=== PATIENT | female | born 1955 | race Caucasian/White ===

== ENCOUNTER → 2017-09-14 | Outpatient (CLI) | payer BC ==
[~2017-09-14] MED LIST: CALC-51 PO; GABA-113 PO; GLUCTAB32 PO; MULT-506 PO; NAPR1TAB9 PO; SODI5SOL4 OPB
--- NOTE | 2017-09-14 11:50 | DIAGNOSTIC IMAGING REPORT ---
CHEST 2 VIEWS ROUTINE CLINICAL HISTORY: Preoperative evaluation. COMPARISON STUDY: No previous studies for comparison. FINDINGS: Lung volumes are normal. There is no pneumothorax or pleural effusion. Lungs are clear. Linear lingular opacity reflects atelectasis. There is no consolidation to suggest pneumonia. There is moderate enlargement of the cardiac silhouette. Pulmonary vascularity is normal. IMPRESSION: 1. No acute cardiopulmonary findings. 2. Moderate enlargement of the cardiac silhouette. Electronically signed by: Jose Trimble M.D. 09/14/2017 10:07 AM Dictated Date/Time: 09/14/2017 10:06 AM
[2017-09-14 12:04] LABS: PTT PATIENT 26.6 SECONDS (21.0-31.0)
[2017-09-14 12:52] LABS: BASO % 0.4 %; BASO ABS # 0.03 K/uL (0-0.2); EOS % 4.1 %; EOS ABS # 0.34 K/uL (0-0.5); HEMATOCRIT 39.1 % (37-47); HEMOGLOBIN 12.5 g/dL (12.0-16.0); IG# 0.02 K/uL (0.00-0.02); LYMPH % 27.3 %; LYMPH ABS # 2.24 K/uL (1.2-3.4); MEAN CORPUSCULAR HEMOGLOBIN 29.4 pg (25-34); MEAN PLATELET VOLUME 11.1 fL (7.4-10.4); MONO % 5.7 %; MONO ABS # 0.47 K/uL (0.11-0.59); NEUT % 62.3 %; PLATELET COUNT 262 K/uL (130-400); RED CELL DISTRIBUTION WIDTH CV 14.2 % (11.5-14.5); RED CELL DISTRIBUTION WIDTH SD 47.5 fL (36.4-46.3)
[2017-09-14 13:31] LABS: HEMOGLOBIN A1C 5.5 % (4.5-5.6)
[2017-09-14 13:48] LABS: ALBUMIN 3.8 gm/dl (3.4-5.0); BLOOD UREA NITROGEN 22 mg/dl (7-18); CALCIUM 8.6 mg/dl (8.5-10.1); CARBON DIOXIDE 26 mmol/L (21-32); CREATININE 0.59 mg/dl (0.60-1.20); GLUCOSE 98 mg/dl (70-99); POTASSIUM 4.1 mmol/L (3.5-5.1); SODIUM 139 mmol/L (136-145)
== END | disposition home or self-care (01) ==
LOC: C.CPL 07:21
PROVIDERS: ATTEND Orthopaedic Surgery Sports Medicine
DX: Z01.818 Encounter for other preprocedural examination (principal)

== ENCOUNTER 2020-01-11 05:53 | Observation (INO) ==
--- NOTE | 2020-01-03 14:22 | Anesthesiology Consultation ---
Date of Service January 03, 2020 Assessment & Plan (1) Encounter for pre-operative examination: Chart Review Chart Review: Pending: Refer to Additional Notes / Consult section (pending ECHO/PCP response and preop Covid testing ) -Discussed [address] Rutledge who recommend checking with cardio to see if ECHO was consistent with HOCM and if repeat ECHO needed prior to surgery. Did discuss with Dr. Brush who does recommend repeat ECHO- note was sent to PCP to see if PCP can order ECHO prior to surgery since patient lives in [place], [place]. If unable- we will try to schedule in [place]. Will awaiting PCP response- did send 2018 ECHO for PCP review Per nursing assessment 12/11/2019, patient resides in [facility]. Wears mask, uses good hand hygiene and socially distances. Travels to [facility] for medical appts. No known Covid positive contacts or Covid related symptoms. Pt follow up with surgeon re: preop Covid testing. Patient seen by PCP 12/25/19= seen for preop clearance. Possible systolic murmur appreciated. Preoperative testing was reviewed. "According to the RCR for preoperative risk, patient is considered a class I risk with a 3.9% chance of adverse cardiac event. No other testing recommended prior to surgery." Right TKA 10/14/17= Done under SAB at L3-4 with 1 attempt. History Surgery Operation Date: 01/11/20 07:30 Proposed Procedures p Right Ankle Posterior Tibial Tendon Reconstruction with Flexor Digitorum Longus Tendon Transfer, - Angel Cuadra DO s Medializing Calcaneal Osteotomy, - Angel Cuadra DO s Lateral Column Lengthening with Autograft, Percutaneous Tendoachilles Lengthening, - Angel Cuadra DO s Right Iliac Crest Autograft [place] - Angel Cuadra DO Height/Weight Height: 5 ft 5 in Weight: 103.419 kg Allergies Allergy/AdvReac Type Severity Reaction Status Date / Time adhesive Allergy Unknown RASH WITH Verified 12/11/19 08:42 BANDAIDS pollen extracts Allergy Unknown sneezing Verified 12/11/19 08:42 Medications Home Medications Medication Instructions Recorded Confirmed Last Taken acetaminophen [Tylenol Extra 1,000 mg PO Q6H PRN 12/11/19 12/11/19 Unknown Strength] calcium carbonate-vitamin D3 1 cap PO QPM 12/11/19 12/11/19 Unknown [Calcium 600 + D(3)] glucos sul 1HNp-tyr-lynzc-C-Mn 3 cap PO QPM 12/11/19 12/11/19 Unknown [Glucosamine Chondroitin] loratadine [Claritin] 10 mg PO QAM 12/11/19 12/11/19 Unknown meloxicam 7.5 mg PO QAM 12/11/19 12/11/19 Unknown mirabegron [Myrbetriq] 25 mg PO QAM 12/11/19 12/11/19 Unknown montelukast 10 mg PO HS 12/11/19 12/11/19 Unknown tmkwpxjduxdq-awuyclfi-xjdxpz 1 tab PO QPM 12/11/19 12/11/19 Unknown [Multivitamin 50 Plus] Past Medical History Medical History (Updated 01/03/20 @ 14:13 by Sushma Clifton PA-C) Allergic rhinitis Arthritis Cardiac murmur 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 GERD (gastroesophageal reflux disease) Urinary bladder incontinence Past Family History Family History Grandmother (Paternal) Family history of diabetes mellitus Father Family history of diabetes mellitus Son Family history of diabetes mellitus Son Family history of diabetes mellitus Past Surgical History Surgical History History of section History of colonoscopy History of foot surgery LEFT History of hysterectomy OVARIES REMAIN History of total knee replacement RIGHT/LEFT Hx of breast biopsy R/L "CALCIUM SPOTS" Nausea and vomiting after administration of anesthetic agent Social History Smoking Status: Never smoker Do You Dip or Chew Tobacco: No Hx Alcohol Use: Yes Alcohol type: hard liquor alcohol intake frequency: a few times a week Hx Substance Use: No Testing Laboratory Results 12/12/19= WBC: 8.5 H/H: 13.0/39.2 PLATELETS: 301 UA: Trace leukocyte esterase Electrocardiogram Date: 12/12/19 Findings: + NSR @ (70) Incomplete right bundle branch block. Chest X-Ray Date: 12/12/19 Findings: + NAD Borderline sized heart. Echocardiogram Date: 10/05/17 EF: 60-65% LV Function: normal RWMA: + none Other Findings: + LVH (Moderate/concentric) and + diastolic dysfunction (Grade 1) Valvular Disease: + no significant valvular disease Severe asymmetric hypertrophy of the anterior septum. Severe left atrial dilation.
--- NOTE | 2020-01-10 16:58 | History & Physical Report ---
Date of Service January 10, 2020 Assessment & Plan (1) Nontraumatic tear of right tibialis posterior tendon: Schedule a Right Posterior tibial tendon reconstruction w/ FDL tendon transfer, Medializing calcaneal osteotomy, Lateral column lengthening w/ autograft, percutaneous tendo-achilles lengthening, right iliac crest autograft harvest for 01.11.2020. All potential risks, benefits, complications, alternatives, and rehab have been discussed with the patient and she wishes to proceed. Plan for ASA 81 mg BID x 4 wks post op for DVT prophylaxis. (2) Posterior tibial tendon dysfunction, right: (3) Pes planus of right foot: (4) Contracture of right Achilles tendon: History of Present Illness Chief Complaint: right ankle pain Primary Care Provider: Divina Scott This is a patient with an onset May 2019 right medial ankle and foot pain with burning and mild swelling proximal and distal to the medial ankle. Pain with walking. Pain worsens with sleep and rest. + Awakens from sleep. Attempted shoe wear modification and Diclofenac gel 1.0% 4X per day. No help. She was treated with PT and later had an MRI because she failed to progress. She is now being set up for surgical management. Allergies Allergy/AdvReac Type Severity Reaction Status Date / Time adhesive Allergy Unknown RASH WITH Verified 12/11/19 08:42 BANDAIDS pollen extracts Allergy Unknown sneezing Verified 12/11/19 08:42 Home Medications Medication Instructions Recorded Confirmed Type acetaminophen [Tylenol Extra 1,000 mg PO Q6H PRN 12/11/19 12/11/19 History Strength] calcium carbonate-vitamin D3 1 cap PO QPM 12/11/19 12/11/19 History [Calcium 600 + D(3)] glucos sul 1ZEw-iyl-cbzll-C-Mn 3 cap PO QPM 12/11/19 12/11/19 History [Glucosamine Chondroitin] loratadine [Claritin] 10 mg PO QAM 12/11/19 12/11/19 History meloxicam 7.5 mg PO QAM 12/11/19 12/11/19 History mirabegron [Myrbetriq] 25 mg PO QAM 12/11/19 12/11/19 History montelukast 10 mg PO HS 12/11/19 12/11/19 History ghoandcqytpx-bexaknvf-faadai 1 tab PO QPM 12/11/19 12/11/19 History [Multivitamin 50 Plus] Past Med/Surg History Medical History (Updated 01/10/20 @ 16:55 by Sreedhar Hernandez PA-C) Allergic rhinitis Arthritis Cardiac 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 GERD (gastroesophageal reflux disease) Urinary bladder incontinence Surgical History History of section History of colonoscopy History of foot surgery LEFT History of hysterectomy OVARIES REMAIN History of total knee replacement RIGHT/LEFT Hx of breast biopsy R/L "CALCIUM SPOTS" Nausea and vomiting after administration of anesthetic agent Family History Grandmother (Paternal) Family history of diabetes mellitus Father Family history of diabetes mellitus Son Family history of diabetes mellitus Son Family history of diabetes mellitus Social History Smoking Status: Never smoker Second Hand Exposure: Yes (WHOLE FAMILY SMOKED); Do You Dip or Chew Tobacco: No; Hx Alcohol Use: Yes Alcohol type: hard liquor Hx Substance Use: No Preferred Language: Romanian Communication Ability: Effective Maintenance And Utilities Supervisor Required: No Beliefs That Will Affect Care: None Current Living Situation: Spouse Other Information That Helps Us Care for You: No Feels Safe at Home: Yes Safety Concerns: Feels Safe At This Time Assistive Devices: Brace/Splint/Immobilizer and Glasses Assistive Devices Comment: BRACE RIGHT FOOT Physical Exam Constitutional: well developed and well nourished; no acute distress ENMT: external ear and nose normal, oropharynx normal Neck: trachea midline, no thyromegaly Respiratory: normal respiratory effort, lungs clear to auscultation Cardiovascular: Rate/Rhythm: regular rate and regular rhythm Gastrointestinal (Abdomen): normal bowel sounds, soft, nontender, no hepatosplenomegaly Musculoskeletal: Ankle: + deformity (right pes planovalgus), + limited ROM of ankle (right dorsiflexion) and + joint line tenderness (ankle) (right PTT and sinus tarsi); no skin erythema and no ecchymosis Skin: no rashes, warm and dry Neurologic: normal touch/pain/proprioception Psychiatric: A+Ox3, euthymic affect Speech: normal rate/rhythm/volume of speech Lymphatic: no cervical or axillary lymphadenopathy
--- OUTSIDE RECORDS SUMMARY | 2020-01-11 05:59 | External Medical Summary | Continuity of Care Document ---
:1955 Author Name Subha Barrera, Provider Address Unavailable Unavailable , Care Team Providers Name Role Phone Leonila Barrera Atilio Unavailable [email or web address] Unavailable Unavailable Unavailable Unavailable Unavailable Assessments Assessed Problems:Encounter for preventive health examination Problems Active medical history not documented Allergies and Adverse Reactions No Known Drug Allergies (Allergy) Pollen (Allergy) Medications Multiple Vitamin TABS; TAKE 1 TABLET DAILY. Refills: 0 Calcium 600 TABS; TAKE 1 TABLET DAILY. Refills: 0 Aleve 220 MG Oral Tablet; TAKE 1 TABLET TWICE DAILY NEEDE D. Refills: 0 Procedures Procedures not documented Immunizations Immunizations not documented Social History - Smoking Status Never smoked tobacco Plan of Treatment Planned Observations Planned Goals not documented Results No Known Results Results not documented Encounters Appointment; Echo/Stress, Echo/Stress 05-Oct-2017 9:30 Encounter Diagnosis: Problem not documented
[2020-01-11] MEDS ORDERED: ceFAZolin 2000MG 2,000 MG/15 ML SYR IV SCH (06:00)
[2020-01-11] MEDS ORDERED: LACTATED RINGER'S 1,000 ML IV SCH (06:00)
[2020-01-11] MEDS ORDERED: BUPIVACAINE 0.5 % 5 MG/1 ML MPF 30ML VIAL ONE (06:29)
[2020-01-11] MEDS ORDERED: EPINEPHrine INJ 1 MG/ML AMP ONE ×2 (06:29→08:38)
[2020-01-11] MEDS ORDERED: MIDAZOLAM HCL 1 MG/ML 2ML VIAL ONE (07:13)
[2020-01-11] MEDS ORDERED: fentaNYL citrate 100 MCG/2 ML VIAL ONE (07:13)
[2020-01-11] MEDS ORDERED: BUPIVACAINE/EPINEPHRINE 0.5% MPF 1:200,000 30 ML VIAL ONE (07:15)
[2020-01-11] MEDS ORDERED: BACITRACIN INJ 50,000 UNIT VIAL ONE (07:15)
[2020-01-11] MEDS ORDERED: GELATIN SPONGE SZ 100 ONE (07:15)
[2020-01-11] MEDS ORDERED: THROMBIN FOR SOLN 20000 UNIT KIT ONE (07:15)
--- NOTE | 2020-01-11 07:30 | History & Physical Bridge Note ---
Date of Service January 11, 2020 History & Physical Bridge Note I have examined the patient, reviewed the History & Physical and in the interval since the performance of the History & Physical I have noted the following changes of clinical significance: no changes noted
[2020-01-11] MEDS ORDERED: ROPIVACAINE 0.5% 5 MG/ML 30 ML VIAL ONE (07:35)
[2020-01-11] MEDS ORDERED: BUPIVACAINE 0.25% 30 ML VIAL ONE (08:38)
[2020-01-11] MEDS ORDERED: MoRPHine SULFATE PF 1 MG/ML 10 ML AMP/VIAL ONE (08:52)
[2020-01-11] MEDS ORDERED: DEXAMETHASONE SOD INJ 4 MG/ML VIAL ONE (09:13)
[2020-01-11] MEDS ORDERED: LIDOCAINE HCL 2% 2 ML VIAL/AMP(20MG/ML) INFIL ONE (09:13)
[2020-01-11] MEDS ORDERED: ONDANSETRON INJ 2 MG/ML 2 ML VIAL ONE (09:13)
[2020-01-11] MEDS ORDERED: PROPOFOL IV EMULSION 10 MG/ML 20 ML VIAL IV ONE (09:13)
[2020-01-11] MEDS ORDERED: KETAMINE 50 MG/5 ML SYRINGE ONE (09:14)
[2020-01-11] MEDS ORDERED: HYDROmorphone INJ 2 MG/ML SYR/VIAL ONE (09:15)
[2020-01-11] MEDS ORDERED: ATROPINE SULFATE 0.1 MG/ML 10ML SYR IV PRN (10:40)
[2020-01-11] MEDS ORDERED: FLUMAZENIL 0.1 MG/1 ML 10 ML VIAL IV PRN (10:40)
[2020-01-11] MEDS ORDERED: ONDANSETRON INJ 2 MG/ML 2 ML VIAL IV PRN ×2 (10:40→12:33)
[2020-01-11] MEDS ORDERED: LABETALOL HCL IV 5 MG/ML 20ML IV PRN (10:40)
[2020-01-11] MEDS ORDERED: HYDROmorphone INJ 0.5 MG/0.5 ML SYR IV PRN (10:40)
[2020-01-11] MEDS ORDERED: PROMETHAZINE HCL 12.5 MG in SODIUM CHLORIDE 0.9% 50 ML IV PRN (10:40)
[2020-01-11] MEDS ORDERED: NALOXONE HCL 0.4 MG/1 ML VIAL/CARP IV PRN ×2 (10:40→12:33)
[2020-01-11] MEDS ORDERED: fentaNYL citrate 100 MCG/2 ML VIAL IV PRN (10:40)
[2020-01-11] MEDS ORDERED: ePHEDrine sulfate 50 MG/ML AMP IV PRN (10:40)
--- NOTE | 2020-01-11 10:48 | Fluoroscopy Report ---
FL heel RT 2V CLINICAL HISTORY: RIGHT ANKLE RECONSTRUCTION COMPARISON STUDY: None. FLUOROSCOPY TIME: 13 seconds. FLUOROSCOPIC IMAGES: 2 FINDINGS: Fluoroscopy was provided during right calcaneal reconstruction with osteotomy and screw fix ation. Hardware is intact. Skin daljit are noted. There are no unexpected radiopaque foreign bodies. IMPRESSION: Fluoroscopy provided during right calcaneal reconstruction with osteotomy and screw fixa tion. ACT 112: Negative or not required by law. Electronically signed by: Jose Trimble M.D. 01/11/2020 10:46 AM
--- NOTE | 2020-01-11 11:02 | Post Operative Brief Note ---
Immediate Post Op Note v1 Date of Surgery January 11, 2020 Pre & Post Diagnosis Operation Date: 01/11/20 07:30 Pre-Op Diagnosis: (1) Nontraumatic tear of right tibialis posterior tendon: (2) Posterior tibial tendon dysfunction, right: (3) Pes planus of right foot: (4) Contracture of right Achilles tendon: Post-Op Diagnosis: (1) Nontraumatic tear of right tibialis posterior tendon: (2) Posterior tibial tendon dysfunction, right: (3) Pes planus of right foot: (4) Contracture of right Achilles tendon: I identified the patient and participated in the time-out.: Yes Procedure Operation Date: 01/11/20 07:30 Actual Procedures p Right Ankle Posterior Tibial Tendon Reconstruction with Flexor Digitorum Longus Tendon Transfer,(Right) - Angel Cuadra DO s Medializing Calcaneal Osteotomy with screw fixation, - DO mark Ramos Lateral Column Lengthening with screw fixation and autograft, Percutaneous Tendoachilles Lengthening, - Angel Cuadra DO s Right Iliac Crest Autograft [place] - Angel Cuadra DO Surgeon Angel Cuadra DO [employer] Lead Sreedhar Hernandez PA-C Estimated Blood Loss 10 Findings Consistent with Post-Op Diagnosis Specimens None Drains Hemovac Drain Anesthesia Type General Regional Complications none Disposition Accompanied Patient To Recovery: No Disposition: Recovery Room
--- NOTE | 2020-01-11 11:29 | Anesthesiology Progress Note ---
Date of Service January 11, 2020 Anesthesia Post Procedure Vital Signs Vital Signs: Temp Pulse Pulse Resp BP Pulse Ox 01/11/20 11:20 72 10 L 133/81 95 01/11/20 11:10 68 10 L 124/82 99 01/11/20 10:59 36.9 C 74 16 143/93 H 98 01/11/20 06:56 65 20 146/80 H 01/11/20 06:31 37 C 74 20 155/87 H Transfer of Care Handoff Completed per policy Notes Mental Status: alert / awake / arousable Patient Amnestic to Procedure: Yes Nausea / Vomiting: adequately controlled Pain: adequately controlled Airway Patency, RR, SpO2: stable & adequate BP & HR: stable & adequate Hydration State: stable & adequate Anesthetic Complications: no major complications apparent
--- NOTE | 2020-01-11 12:04 | Operative Report (OR) ---
DATE OF OPERATION: 01/11/2020 PREOPERATIVE DIAGNOSES: 1. Right posterior tibial tendon tear. 2. Posterior tibial tendon dysfunction grade 2. 3. Painful pes planovalgus deformity. 4. Achilles tendon contracture. POSTOPERATIVE DIAGNOSES: 1. Right posterior tibial tendon tear. 2. Posterior tibial tendon dysfunction grade 2. 3. Painful pes planovalgus deformity. 4. Achilles tendon contracture. PROCEDURES: 1. Right posterior tibial tendon reconstruction with flexor digitorum longus tendon transfer. 2. Medialized and calcaneal osteotomy with screw fixation. 3. Lateral column lengthening of the calcaneus with screw fixation and autograft. 4. Percutaneous tendo-Achilles lengthening. 5. Right iliac crest autograft harvest. SURGEON: Angel Cuadra DO. SCREWHEAD POLISHER: Sreedhar Hernandez PA-C who was present for patient positioning, sterile prep and drape, management of retractors and instruments. He was present through the critical portions of the case including wound closure, application of sterile dressing and transport of the patient to recovery. ANESTHESIA: General, regional. SPECIMENS: None. DRAINS: Hemovac x1. COMPLICATIONS: None. BLOOD LOSS: 10 mL. PERTINENT HISTORY: This is a 64-year-old woman who has had a severe painful deformity of her right foot. She has attempted conservative management with bracing, anti-inflammatories, rest and observation; however, she presented to the office, had radiographs and then eventually an MRI, which demonstrated complete rupture of her posterior tibial tendon with grade 2 changes of the hindfoot related to posterior tibial tendon dysfunction and Achilles tendon contracture, painful acquired pes planovalgus and she was then scheduled for surgery as indicated. All potential risks, benefits, complications, alternatives, rehab potential for incomplete relief of symptoms, need for further surgery, DVT, PE, , persistent pain, swelling, scarring, weakness, neurovascular injury, wound complications, hardware failure, nonunion, malunion, bone fracture were discussed with the patient. The patient decided to proceed with the procedure as indicated. DESCRIPTION OF PROCEDURE: The patient was taken to the operative suite. The consent was reviewed and surgical site was identified. The patient had undergone a General, regional anesthetic and then transferred to the Operating Room table. Tourniquet was placed high in the right thigh over cast padding. Right iliac crest and right lower extremity were then sterilely prepped and draped in usual fashion. The right lower extremity was then elevated and exsanguinated with Esmarch bandage, tourniquet inflated to 350 mmHg. Next, right foot was held in dorsiflexion. 11 blade scalpel was used to perform a three part percutaneous tendo Achilles lengthening and then the small stab incisions were then closed with a skin stapler. Next, a 15 blade scalpel was used to make an incision in oblique fashion on the lateral aspect of the right calcaneus. The incision was deepened to subcutaneous tissue. Meticulous hemostasis with electrocautery. Full thickness flaps were developed. Next, periosteum was elevated with small periosteal elevator. Hohmann retractors were placed and a sagittal saw was used to perform the osteotomy in the posterior aspect of the calcaneus. Tuberosity was then shifted medially and then stabilized with a guide pin from the 7.3 mm cannulated screw set under fluoroscopic control. Next, a short thread 7.3 mm cannulated screw of appropriate length was then placed over the guide pin and then used to compress the osteotomy under fluoroscopic control. Next, the guide pin was removed. The wound was irrigated with sterile Normal Saline and the dermis was closed using buried 3-0 Vicryl sutures and the skin was closed using 4-0 Nylon. Next, a 15 blade scalpel incision was made over the anterior process of the calcaneus and lateral calcaneus, the incision deepened through subcutaneous tissue, meticulous hemostasis with electrocautery. The extensor digitorum brevis was identified, incised and then elevated both superiorly and inferiorly. Peroneal tendon sheath was elevated and Hohmann retractors were placed in the sinus tarsi and then the inferior aspect of the calcaneus. A sagittal saw was used to make an osteotomy approximately 1.5 cm proximal to the calcaneal cuboid joint. Smooth osteotomes were placed into the osteotomies to open the osteotomy site and then a cervical lamina women's activities adviser was placed in the opening. The opening of appropriate width was then measured and the cervical lamina women's activities adviser was then removed from the osteotomy and a moist lap was placed over the foot. Next, after injection of the right iliac crest with approximately 15 cc of 0.5% Marcaine with Epinephrine a 15 blade scalpel incision was made over the iliac crest approximately 1 cm proximal to the ASIS. This was deepened to subcutaneous tissue with electrocautery down to the level of the fascia. Fascia was incised in line with the skin incision and then the iliac crest was clearly visualized, soft tissue and fascia was elevated medially and laterally. Small Keen retractors were placed in the inner and outer table of the iliac crest. It was irrigated with sterile Normal Saline. Appropriate length of bone wedge was measured and marked with electrocautery and then a sagittal saw was used to resect the appropriate width trapezoidal tricortical graft from the pelvis. Next, after irrigation and suction the graft was then placed on the back table and a small amount of cancellous graft was excised from the iliac crest. The wound was then finally irrigated with Sterile Normal Saline. The defect in the iliac crest was then packed with Gelfoam and Thrombin. This was then closed with the fascia overlying the iliac crest with #1 Vicryl sutures. Next, this was injected with 1 cc of Duramorph and 5 cc of 0.5% Marcaine with Epinephrine. The dermis was closed using buried interrupted 2-0 Vicryl sutures and the skin was closed using skin daljit. Approximately 5 more cc of 0.5% Marcaine with Epinephrine was injected. No oozing or bleeding was encountered and a sterile compressive dry dressing was applied overwrapped with an OpSite. Next, the graft was then placed in the lateral osteotomy of the foot to lengthen the lateral column using a cervical lamina women's activities adviser to span the osteotomy. After the graft was tamped in place with a bone tamp and mallet the cervical lamina women's activities adviser was removed. Next, the adjacent bone graft obtained from the iliac crest was then packed around the tricortical graft and then the graft was then stabilized with a single fully threaded 4.0 mm small fragment screw placed under lag technique compressing the graft in place. Next, the 2-0 Vicryl suture was used to close the extensor digitorum brevis and the dermis was closed using buried interrupted 3-0 Vicryl. Skin was closed using 4-0 Nylon sutures. Next, a 15 blade scalpel was used to make a long curvilinear incision along the medial aspect of the hind foot overlying the posterior tibial tendon. The incision was deepened to subcutaneous tissue. Meticulous hemostasis achieved with electrocautery. The incision was extended to the first metatarsal head. Next, after incision of the laciniate ligament the flexor retinaculum was encountered. This was incised in line with skin incision overlying the posterior tibial tendon. The posterior tibial tendon was clearly visualized. Tenotomy scissors were then used to complete the release of the flexor retinaculum and the posterior tibial tendon was then elevated sharply with combination of electrocautery and 15 blade scalpel from its insertion on the navicular. The damaged portion of the tendon distally was then resected and then a whip stitch was placed with 0 Ethibond suture in the distal aspect of the posterior tibial tendon. Next, dissection was continued in the mid foot in the interval between the first metatarsal and the abductor hallucis. A Weitlaner retractor was placed in the wound and then after careful dissection the master knot of Seth was released and the flexor digitorum longus and flexor hallucis longus were clearly visualized distally. Tenodesis was performed with interrupted 0 Ethibond suture with toes held in neutral alignment in line with the metatarsals. Next, a whip stitch was placed in the distal aspect of the FDL tendon and then the FDL was then released distally to allow it to be retracted proximally posterior to the medial malleolus after a small cut was made in the FDL sheath posterior to the medial malleolus. After the tendon was withdrawn posteriorly, the soft tissues were elevated from the medial navicular and a 4.5 mm drill hole was made in the medial navicular. A Fitzgerald suture passer was used to transfer the tendon from the plantar to the dorsal aspect of the navicular. It was then sutured back down to itself using a sharp tendon passer and a Pulvertaft weave technique with #2 fiber wire suture. Several passes were made and then this was then incorporated into the posterior tibial tendon. Next, free needle was used to tie the ends of the posterior tibial tendon and FDL tendon into the adjacent tendons. Sutures were then tied and cut. The wound was irrigated with Sterile Normal Saline. Deep drain was placed, a #10 Chinese single Hemovac drain medially and then the flexor sheath was closed using interrupted 2-0 Vicryl sutures. The interval between the first metatarsal and the abductors were closed using interrupted 2-0 Vicryl sutures. The dermis was closed using buried interrupted 3-0 Vicryl suture and skin closed with 4-0 Nylon. A sterile compressive Rc Grover plaster splint was applied and wrapped with an [place] wrap with the foot held in slight equinus and inversion. The tourniquet was released, patient awakened and taken to recovery in stable condition. I attest to the content of the Intraoperative Record and any orders documented therein. Any exception s are noted below.
[2020-01-11] MEDS ORDERED: MAGNESIUM HYDROXIDE SUSP 30 ML UDC PO PRN (12:33)
[2020-01-11] MEDS ORDERED: METOCLOPRAMIDE HCL INJ 5 MG/ML 2 ML VIAL IV PRN (12:33)
[2020-01-11] MEDS ORDERED: NO NSAIDS SCH (12:33)
[2020-01-11] MEDS ORDERED: ALUMINUM/MAGNESIUM SUSP 30 ML UDC PO PRN (12:33)
[2020-01-11] MEDS ORDERED: bisacodyL 10 MG SUPP PR PRN (12:33)
[2020-01-11] MEDS ORDERED: diphenhydrAMINE Capsule 25 MG CAP PO PRN (12:33)
[2020-01-11] MEDS: SODIUM CHLORIDE 0.9% 1000ML 1,000 ML IV SCH ×2 (13:07→23:19)
[2020-01-11] MEDS: ACETAMINOPHEN 500 MG TAB PO SCH ×2 (14:21→20:32)
[2020-01-11] MEDS: HYDROmorphone INJ 0.5 MG/0.5 ML SYR IV PRN ×2 (14:53→20:27)
[2020-01-11] MEDS: ceFAZolin 2000MG 2,000 MG/15 ML SYR IV SCH ×2 (15:37→23:26)
[2020-01-11] MEDS: oxyCODONE HCL IR 5 MG TAB (IMMEDIATE RELEASE) PO PRN (18:53)
[2020-01-11] MEDS: ASPIRIN 81 MG ECTAB PO SCH (20:32)
[2020-01-11] MEDS: DOCUSATE SODIUM 100 MG CAP PO SCH (20:33)
[2020-01-11] MEDS ORDERED: NON-FORMULARY MEDICATION (Glucos Sul 2kcl-Msm-Chond-C-Mn [Glucosamine Chondroitin] 550-30- PO SCH (21:00)
[2020-01-11] MEDS ORDERED: CALCIUM 600MG + VIT D 400 IU TAB PO SCH (21:00)
[2020-01-11] MEDS ORDERED: CEROVITE ADV FORMULA TAB PO SCH (21:00)
[2020-01-11] MEDS ORDERED: SENNA 8.6 MG TAB PO SCH (21:00)
[2020-01-11] MEDS ORDERED: MONTELUKAST SODIUM 10 MG TABLET PO SCH (21:00)
[2020-01-12] MEDS: oxyCODONE HCL IR 5 MG TAB (IMMEDIATE RELEASE) PO PRN ×3 (02:06→12:41)
[2020-01-12] MEDS: ACETAMINOPHEN 500 MG TAB PO SCH (05:44)
[2020-01-12 07:49] LABS: Hematocrit (blood only) 36.6 % (37-47); Hemoglobin 11.8 g/dL (12.0-16.0); Mean Corpuscular Hemoglobin 29.8 pg (25-34); Mean Corpuscular Hgb Conc 32.2 g/dL (32-36); Mean Corpuscular Volume 92.4 fL (80-100); Mean Platelet Volume 9.9 fL (7.4-10.4); Platelet Count 256 K/uL (130-400); RDW Coefficient of Variation 13.6 % (11.5-14.5); RDW Standard Deviation 45.9 fL (36.4-46.3); Red Blood Count 3.96 M/uL (4.2-5.4); White Blood Count 11.83 K/uL (4.8-10.8)
[2020-01-12 08:17] LABS: BUN Creatinine Ratio 18.4 (10-20); Calcium 9.8 mg/dl (8.5-10.1); Creatinine Clr Calc Pharmacy 81.8 ml/min; Est GFR (African American) 87.6; Est GFR (Non-African American) 75.6; Potassium 3.8 mmol/L (3.5-5.1)
[2020-01-12] MEDS: LORATADINE 10 MG TAB PO SCH ×2 (08:44→08:47)
[2020-01-12] MEDS: ASPIRIN 81 MG ECTAB PO SCH (08:44)
[2020-01-12] MEDS: DOCUSATE SODIUM 100 MG CAP PO SCH (08:44)
[2020-01-12] MEDS ORDERED: MIRABEGRON ER 25 MG TAB PO SCH (09:00)
[2020-01-12] MEDS ORDERED: MULTIVITAMIN TAB PO SCH (09:00)
--- NOTE | 2020-01-12 09:17 | Orthopedic Progress Note ---
Date of Service January 12, 2020 Assessment & Plan (1) Contracture of right Achilles tendon: 1. Right posterior tibial tendon reconstruction with flexor digitorum longus tendon transfer. 2. Medialized and calcaneal osteotomy with screw fixation. 3. Lateral column lengthening of the calcaneus with screw fixation and autograft. 4. Percutaneous tendo-Achilles lengthening. 5. Right iliac crest autograft harvest. DVT prophylaxis- ASA, TEDS Plan for discharge today if cleared by PT Admission and Anticipated Discharge Date Admission Date: January 11, 2020 Subjective she notes pain is mostly controlled this am. Getting up to use bedside commode. Denies CP/sob. Physical Exam Physical Exam: Toes mobile, NVI. Dressing in place. hemovac drain. Results & Data ([facility]) Vital Signs (Past 12 Hours) Vital Signs Temp Pulse Resp BP Pulse Ox 01/12/20 08:10 37.0 C 77 18 132/79 95 01/12/20 03:15 37.0 C 78 18 143/84 H 91 01/11/20 23:08 36.8 C 79 16 138/80 94
--- NOTE | 2020-01-18 08:54 | Discharge Summary ---
Date of Service January 18, 2020 Admission HPI Per Admitting Provider This is a patient with an onset May 2019 right medial ankle and foot pain with burning and mild swelling proximal and distal to the medial ankle. Pain with walking. Pain worsens with sleep and rest. + Awakens from sleep. Attempted shoe wear modification and Diclofenac gel 1.0% 4X per day. No help. She was treated with PT and later had an MRI because she failed to progress. She is now being set up for surgical management. Principal Diagnosis right posterior tibial tendon tear and dysfunction Discharge Exam Constitutional well developed and well nourished; no acute distress ENMT external ear and nose normal, oropharynx normal Neck trachea midline, no thyromegaly Respiratory normal respiratory effort, lungs clear to auscultation Cardiovascular Rate/Rhythm: regular rate and regular rhythm Gastrointestinal (Abdomen) normal bowel sounds, soft, nontender, no hepatosplenomegaly Musculoskeletal Ankle: + surgical incision (right ankle splint C/D/I ); no skin erythema and no ecchymosis Skin no rashes, warm and dry Neurologic normal touch/pain/proprioception Psychiatric A+Ox3, euthymic affect Speech: normal rate/rhythm/volume of speech Lymphatic no cervical or axillary lymphadenopathy Discharge Data Allergies Allergy/AdvReac Type Severity Reaction Status Date / Time adhesive Allergy Unknown RASH WITH Verified 01/11/20 06:23 BANDAIDS pollen extracts Allergy Unknown sneezing Verified 01/11/20 06:23 Consultations 01/11/20 12:33 Consult Case Management - Discharge Planning Routine Procedures Performed Operation Date: 01/11/20 07:30 Actual Procedures p Right Ankle Posterior Tibial Tendon Reconstruction with Flexor Digitorum Longus Tendon Transfer,(Right) - Angel Cuadra DO s Medializing Calcaneal Osteotomy, - DO mark Ramos Lateral Column Lengthening with Autograft, Percutaneous Tendoachilles Lengthening, - DO mark Ramos Right Iliac Crest Autograft [place] - Angel Cuadra DO Ordered Studies 01/11/20 05:00 US - OR guided needle placemen Routine 01/11/20 07:30 FL fluoroscopy <1hr Routine FL heel RT 2V Routine Hospital Course (1) Contracture of right Achilles tendon: The patient was admitted on the above date and underwent the noted procedure. She was doing well on POD #1 with pain control and maintaining NWB status on the RLE. She participated in PT. She was discharged home later that day. 1. Right posterior tibial tendon reconstruction with flexor digitorum longus tendon transfer. 2. Medialized and calcaneal osteotomy with screw fixation. 3. Lateral column lengthening of the calcaneus with screw fixation and autograft. 4. Percutaneous tendo-Achilles lengthening. 5. Right iliac crest autograft harvest. DVT prophylaxis- ASA, TEDS Plan for discharge today if cleared by PT Total Time Total Time Spent Total Time Spent (In Minutes): 30 Total Time Includes: Examination of the Patient, Discharge Planning and Medication Reconciliation Discharge Plan Discharge Items Patient Disposition: Home - Home Health Services Reason For Visit: Right Leg Snyovitis Tenosynovitis, Abnormal Findin Discharge Diagnosis: right posterior tibial tendon rupture Activity: Per Instructions section Non-emergency contact: Surgeon Call non-emergency contact if: your pain is not controlled, your pain is worsening and your temperature is above 101 Follow-up/Referrals: Brigido Plaza DO [Primary Care Provider] - Diet: Regular Addtl Attending Provider Instructions: ACTIVITY RECOMMENDATIONS: Limitations: No weight bearing to affected limb at all times. SPECIAL CARE INSTRUCTIONS: * Take Aspirin 81 mg every 12 hours for 4 weeks. Start first dose tonight. * Some drainage onto the dressing is normal and is no cause for alarm. * Some swelling is natural especially after walking. * When resting, keep your foot elevated above the level of your heart. * Call [facility] if you notice: -Increased drainage -Fever over 101 degrees F -Severe constant pain BANDAGE: * Leave bandage/cast in place unless otherwise directed. * Keep bandage/cast dry at all times. FOLLOW UP VISIT WITH DR. CUADRA If appointment is not already scheduled: Please call [facility] after you get home today to schedule a follow-up appointment for [address] Cuadra at . [facility] Provider Instructions: Will residential health is set up. Nursing and OT will see you the first week. PT will be there the week of 01/19 Pending Studies at Discharge: No Stand-Alone Forms: [employer], Opioid Pain Management, Smoking Cessation Medications and DC Order Prescriptions: New aspirin 81 mg tablet,delayed release (DR/EC) 81 mg PO BID Qty: 60 RF: 0 oxycodone-acetaminophen [Percocet] 5-325 mg tablet 1 tab PO Q4H PRN (Reason: pain) Qty: 20 RF: 0 Continued montelukast 10 mg Tablet 10 mg PO HS RF: 0 loratadine [Claritin] 10 mg Tablet 10 mg PO QAM RF: 0 Multivitamin 50 Plus Tablet 1 tab PO QPM RF: 0 Calcium 600 + D(3) 600 mg calcium- 200 unit Capsule 1 cap PO QPM RF: 0 Myrbetriq 25 mg Tablet Extended Release 24 Hr 25 mg PO QAM RF: 0 Glucosamine Chondroitin 550-30-1 mg Capsule 3 cap PO QPM RF: 0 Discontinued meloxicam 7.5 mg Tablet 7.5 mg PO QAM RF: 0 acetaminophen [Tylenol Extra Strength] 500 mg Capsule 1,000 mg PO Q6H PRN (Reason: Pain) RF: 0 Discharge Orders: Discharge Order (Routine); Ordered 01/12/20 Ordered By: Nicole Pressley/Other Patient Handouts: DVT Post Op Prevention Admission Data Admit Date/Time: 01/11/20 11:21 Attending Provider: Angel Cuadra Admit Provider: Sreedhar Hernandez Primary Care Provider: Brigido Plaza Other Interventions: Discharge Summary Assessment (RN) Last Done: 01/12/20 12:44
== END 2020-01-12 14:50 | disposition home health service (06) | DRG 502 ==
LOC: ASU 05:53 → INTOOBSV 11:21 → 3E 11:21